=== PATIENT | male | born 1955 | race Caucasian/White ===

== ENCOUNTER 2022-01-03 13:17 | Outpatient (CLI) | payer MEDICARE, OTHER, SELFPAY ==
[2022-01-03 17:29] LABS: Albumin* 4.3 g/dL (3.3-5.0)
[2022-01-03 17:32] LABS: Alanine Aminotransferase* 19 U/L (4-50); Alkaline Phosphatase* 72 U/L (40-150); Aspartate Amino Transferase* 26 U/L (12-35); Bilirubin Direct* 0.2 mg/dL (0.0-0.5); Bilirubin Total* 1.2 mg/dL (0.1-1.5); Lipase* 128 U/L (23-300); Total Protein* 7.5 g/dL (6.0-8.3)
== END 2022-01-03 13:18 | disposition home or self-care (01) ==
PROVIDERS: PCP Family Medicine; Visit Provider Family Medicine
DX: R10.9 Unspecified abdominal pain (principal)
CPT/HCPCS: 80076; 83690

== ENCOUNTER 2022-03-28 10:48 | Outpatient (CLI) | payer MEDICARE, BC, SELFPAY ==
[2022-03-28 18:39] LABS: Albumin* 4.4 g/dL (3.3-5.0)
[2022-03-28 18:40] LABS: Chloride* 103 mmol/L (96-114); Potassium* 4.8 mmol/L (3.6-5.1); Sodium* 140 mmol/L (135-149)
[2022-03-28 18:42] LABS: Bilirubin Total* 1.2 mg/dL (0.1-1.5); Creatinine* 0.9 mg/dL (0.5-1.5); Estimated Glomerular Filt Rate 94 ml/min
[2022-03-28 18:43] LABS: Alanine Aminotransferase* 19 U/L (4-50); Alkaline Phosphatase* 64 U/L (40-150); Aspartate Amino Transferase* 26 U/L (12-35); Blood Urea Nitrogen* 11 mg/dL (7-30); Calcium* 9.7 mg/dL (8.4-10.6); Carbon Dioxide* 29 mmol/L (20-32); Glucose* 101 mg/dL (60-115); Lipase* 106 U/L (23-300); Total Protein* 7.9 g/dL (6.0-8.3)
== END 2022-03-28 10:49 | disposition home or self-care (01) ==
PROVIDERS: PCP Family Medicine; Visit Provider Family Medicine
DX: R10.9 Unspecified abdominal pain (principal); I10 Essential (primary) hypertension; K74.60 Unspecified cirrhosis of liver
CPT/HCPCS: 80053; 83690

== ENCOUNTER 2022-04-07 14:20 | Outpatient (CLI) | payer MEDICARE, BC, SELFPAY ==
[2022-04-07 17:21] LABS: Prothrombin Time 13.8 Seconds
== END 2022-04-07 14:21 | disposition home or self-care (01) ==
LOC: NFLDREF 14:22
PROVIDERS: PCP Family Medicine; Visit Provider Surgery
DX: K70.30 Alcoholic cirrhosis of liver without ascites (principal)
CPT/HCPCS: 85610

== ENCOUNTER 2022-04-15 08:01 | Outpatient (CLI) | payer MEDICARE, BC, SELFPAY ==
--- NOTE | 2022-04-15 09:00 | CRLHL7_ITS ---
For Patients: As a result of the Century Cures Act, medical imaging exams and procedure reports are released immediately into your electronic medical record. You may view this report before your referring provider. If you have questions, please contact your health care provider. Indication: GALLSTONES, HISTORY OF CIRRHOSIS Technique: Postcontrast CT abdomen and pelvis. 100 cc Isovue 370 intravenous contrast. Please note that all CT scans at this facility use dose modulation, iterative reconstruction, and/or weight-based dosing when appropriate to reduce radiation dose to as low as reasonably achievable. Comparison: CT 08/06/2012, ultrasound 08/01/2021 Findings: Lung bases are clear. No free intraperitoneal air noted. The liver is shrunken and has a macronodular contour with heterogeneous enhancement. The spleen is upper limits of normal in size measuring 12 cm. The adrenal glands are normal. No hydronephrosis. There is a simple cyst within the lower pole of the left kidney measuring 3.5 cm. Atherosclerotic changes within the aorta noted without aneurysm. The pancreatic parenchyma is normal. Calcified gallstones are present within the gallbladder lumen measuring up to 8 millimeters. No intrahepatic biliary duct dilation. The common bile duct appears normal. No hiatal hernia. The stomach is within normal limits. The bladder is normal. Prostate calcifications are present. No bowel obstruction or free fluid. No abscess. Recanalization of the periumbilical vein noted. Multilevel degenerative disc disease and facet degeneration. No fracture. 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 This is chronic. Impression: Severe hepatic cirrhosis with recanalization of the periumbilical vein and upper limits of normal in size of the spleen. Numerous varices are present within the left upper quadrant. Cholelithiasis. Please note that all CT scans at this facility use dose modulation, iterative reconstruction, and/or weight-based dosing when appropriate to reduce radiation dose to as low as reasonably achievable. Dictated by Enzo Foley MD @ 04/15/2022 12:44:52 PM (Electronically Signed)
== END 2022-04-15 08:02 | disposition home or self-care (01) ==
LOC: CT 08:02
PROVIDERS: PCP Family Medicine; Visit Provider Surgery
DX: K70.30 Alcoholic cirrhosis of liver without ascites (principal); K74.60 Unspecified cirrhosis of liver; K80.20 Calculus of gallbladder without cholecystitis without obstruction
CPT/HCPCS: 74177; Q9967

== ENCOUNTER 2023-05-18 06:30 | Outpatient (CLI) | payer MEDICARE, BC, SELFPAY ==
--- NOTE | 2023-05-18 08:19 | W.ANESCHARGE ---
Anesthesia Charges Start Date/Time Anesthesia Start Date: 05/18/23 Anesthesia Start Time: 07:23 Stop Date/Time Anesthesia Stop Date: 05/18/23 Anesthesia Stop Time: 08:10
--- NOTE | 2023-05-18 11:07 | W.ANESCHARGE ---
Anesthesia Charges Start Date/Time Anesthesia Start Date: 05/18/23 Anesthesia Start Time: 07:23 Stop Date/Time Anesthesia Stop Date: 05/18/23 Anesthesia Stop Time: 08:10
== END 2023-05-18 06:31 | disposition home or self-care (01) ==
LOC: OP CLINIC 06:31
PROVIDERS: PCP Family Medicine; Visit Provider Surgery
DX: Z12.11 Encounter for screening for malignant neoplasm of colon (principal); K63.5 Polyp of colon; K62.1 Rectal polyp; K57.30 Diverticulosis of large intestine without perforation or abscess without bleeding; Z86.010 Personal history of colon polyps
CPT/HCPCS: 00811; 45380; 45381; 45385; 88305; J2704

== ENCOUNTER 2023-07-13 11:34 | Outpatient (CLI) | payer MEDICARE, BC, SELFPAY ==
--- OUTSIDE RECORDS SUMMARY | 2023-07-13 11:37 | XMS_ITS | Referral Summary ---
Author Name Unknown Organization [facility] Address [address] [place] [address] Care Team Providers Care Psychiatric Np Name Role Phone Elsewhere, Pcp Primary Care Provider Unavailabl e Source Comments Patient records contain information from all sites at [facility]. For routine questions regarding patient records, call [phone] during business hours, M-F 8:00 AM - 5:00 PM Central Time. Record requests for emergency care only can be directed to [phone] at any time.[facility] Allergies Active Allergy Reactions Criticality Noted Date Comments Sulfa (Sulfonamide Antibiotics) Other (see comments) 08/05/2010 Medications Medication Sig Dispensed Refills Start Date End Date Status omeprazole (PriLOSEC) [address] capsule Take 20 mg by mouth every morning before breakfast. 08/05/2010 Active tamsulosin (FLOMAX) 0.4 mg 24 hr capsule Take 0.4 mg by mouth daily. Active metoprolol succinate (TOPROL-XL) 50 mg 24 hr tablet Take 50 mg by mouth daily. To start after out of metoprolol tartrate. Do not crush or chew. Active nortriptyline (PAMELOR) 10 mg capsule Take 1 capsule (10 mg total) by mouth at bedtime. 30 capsule 07/13/2022 Active metoprolol tartrate (LOPRESSOR) 50 mg tablet Take 1 tablet (50 mg total) by mouth daily. If you begin taking Metoprolol Succinate 50 mg daily, please stop this medication. 30 tablet 07/13/2022 Active Active Problems Problem Noted Date Diagnosed Date Gallstone Without Obstruction 07/13/2022 Abdominal Pain 07/12/2022 Degeneration Disc Cervical 09/08/201307/06 Hypertension 08/05/2010 07/06/2022 Social History Tobacco Use Types Packs/Day Years Used Date Smoking Tobacco: Former Cigarettes 2.5 20 Smokeless Tobacco: Current Snuff Tobacco Cessation:Ready to Q uit: Not Asked; Counseling Given: Not Answered Alcohol Use Standard Drinks/Week Comments Not Currently 0 (1 standard drink = 0.6 oz pur e alcohol) Quit drinking 10 years ago. Nutrition Answer Date Recorded Nutrition: EVOO Fat Source Unknown 07/06 Nutrition: Servings of Fruits/Vegetables per Day Not on file 07/06/2022 Dental Answer Date Recorded Dental: Regular Dentist Unknown 07/07/19 Sex and Gender Information Value Date Recorded Sex Assigned at Not on file Gender Identity Not on file Sexual Orientation Not on file Last Filed Vital Signs Vital Sign Reading Time Taken Comments Blood Pressure 135/91 07/13/2022 12:40 PM CDT Pulse 53 07/13/2022 12:40 PM CDT Temperature 36.9 ??C (98.4 ??F) 07/13/2022 12:40 PM C DT Respiratory Rate 16 07/13/2022 12:40 PM CDT Oxygen Saturation 95% 07/13/2022 12:40 PM CDT Inhaled Oxygen Concentration - - Weight 107 kg (236 lb 5.3 oz) 07/12/2022 4:01 PM CDT Height 180.3 cm (5' 11) 07/12/2022 4:01 PM CDT Body Mass Index 32.96 07/12/2022 4:01 PM CDT Plan of Treatment Not on file Procedures Procedure Name Priority Date/Time Associated Diagnosis Comments COMPREHENSIVE METABOLIC PANEL, S/P Routine 07/13/2022 4:[address] ABDOMEN PELVIS WITH IV CONTRAST RAD - Semiurgent (Fast; most ED patients; some inpatients) 07/12/2022 12:45 PM CDT from Last 3 Months or Most Recently Relevant to Health Maintenance Results * (ABNORMAL) Comprehensive Metabolic Panel (07/13/2022 4:17 AM CDT) Potassium, S 4.6 3.6 - 5.2 mmol/L 07/13/2022 5:37 AM CDT DTL Sodium, S 140 135 - 145 mmol/L 07/13/2022 5:37 AM CDT DTL Chloride, S 102 98 - 107 mmol/L 07/13/2022 5:37 AM CDT DTL Bicarbonate, S 26 22 - 29 mmol/L 07/13/2022 5:37 AM CDT DTL Anion Gap 12 7 - 15 07/13/2022 5:37 AM CDT DTL BUN (Blood Urea Nitrogen), S 12 8 - 24 mg/dL 07/13/2022 5:37 AM CDT DTL Creatinine 1.14 0.74 - 1.35 mg/dL 07/13/2022 5:37 AM CDT DTL Estimated GFR (eGFR) 70 >=60 mL/min/BS A 07/13/2022 5:37 AM CDT DTL Comment: Estimated GFR calculated using the 2020 CKD_EPI creatinine equation. Calcium, Total, S 9.6 8.8 - 10.2 mg/dL 07/13/2022 5:37 AM CDT DTL Glucose, S 89 70 - 140 mg/dL 07/13/2022 5:37 AM CDT DTL Protein, Total, S 6.9 6.3 - 7.9 g/dL 07/13/2022 5:37 AM CDT DTL Albumin, S 4.1 3.5 - 5.0 g/dL 07/13/2022 5:37 AM CDT DTL Aspartate Aminotransferase (AST), S 21 8 - 48 U/L 07/13/2022 5:37 AM CDT DTL Alkaline Phosphatase, S 49 40 - 129 U/L 07/13/2022 5:37 AM CDT DTL Alanine Aminotransferase (ALT), S 14 7 - 55 U/L 07/13/2022 5:37 AM CDT DTL Bilirubin, Total, S 1.4(H) <=1.2 mg/dL 07/13/2022 5:37 AM CDT DTL Blood (Blood, Venous) 07/13/2022 4:17 AM CDT 07/13/2022 5:19 AM CDT Trent Boyer M.D. LAB BLOOD ADD-ON [facility] [address] [place] [address], [place] DTL [facility] [address] [place] [address] * CT Abdomen Pelvis with IV Contrast (07/12/2022 12:45 PM CDT) Anatomical Region Laterality Modality Abdomen, Pelvis, Abdominal R ST LOS, Abdominal ARZ LOS, Abdominal FLA LOS N/A Computed Tomograp hy, Computed Tomography 07/12/2022 12:4 3 PM CDT Impressions 07/12/2022 12:59 PM CDT 1. No significant change since 04/15/2022. No acute findings in the abdomen or pelvis. 2. Cirrhotic liver morphology with compensated portal venous hypertension. 3. Curvilinear sclerotic foci in both femoral heads, could represent AVN. Narrative 07/12/2022 12:59 PM CDT EXAM: ??CT ABDOMEN PELVIS WITH IV CONTRAST COMPARISON: ??CT of the abdomen and pelvis 04/15/2022. FINDINGS: ??Similar cirrhotic liver morphology with recannulation of the umbilical vein and prominent perisplenic venous collaterals. No ascites. Similar gallstones without findings to suggest acute cholecystitis. Left renal cyst. Mild symmetric thickening of the bladder wall, likely secondary to underdistention. Enlarged prostate. Solid organs otherwise unremarkable. Normal caliber bowel. Negative appendix. Small fat-containing right inguinal hernia. Moderate peripheral arterial disease with hemodynamically significant stenosis in the bilateral external iliac arteries. Moderate-advanced degenerative changes of the spine. Similar curvilinear sclerotic foci in both femoral heads without subarticular collapse. Procedure Note Delta Beltran M.D. - 07/12/2022 EXAM: CT ABDOMEN PELVIS WITH IV CONTRAST COMPARISON: CT of the abdomen and pelvis 04/15/2022. FINDINGS: Similar cirrhotic liver morphology with recannulation of theumbilical vein and prominent perisplenic venous collaterals. No ascites. Similar gallstones withoutfindings to suggest acute cholecystitis. Left renal cyst. Mild symmetric thickening of the bladderwall, likely secondary to underdistention. Enlarged prostate. Solid organs otherwise unremarkable.Normal caliber bowel. Negative appendix. Small fat-containing right inguinal hernia. Moderateperipheral arterial disease with hemodynamically significant stenosis in the bilateral external iliacarteries. Moderate-advanced degenerative changes of the spine. Similar curvilinearsclerotic foci in both femoral heads without subarticular collapse. IMPRESSION: 1. No significant change since 04/15/2022. No acute findings in theabdomen or pelvis. 2. Cirrhotic liver morphology with compensated portal venoushypertension. 3. Curvilinear sclerotic foci in both femoral heads, could representAVN. Aniceto Travis M.D. IMG CT PROCEDURES from Last 3 Months or Most Recently Relevant to Health Maintenance Advance Directives For more information, please contact: [phone] * Full Code (Latest Code Status on File) Date Activated Date Inactivated Comments 07/12/2022 6:06 PM 07/13/2022 3:33 PM Question Answer Comments Full Code: Discussed Care Teams Psychiatric Np Relationship Specialty Start Date End Date Elsewhere, Pcp PCP - General Internal Medicine 07/06/22
--- OUTSIDE RECORDS SUMMARY | 2023-07-13 11:37 | XMS_ITS | Continuity of Care Document ---
Author Name Unknown Organization [facility] Address [address] [place] [address] Phone Care Team Providers Care Master Sonar Technician Name Role Phone Joe Harris Unavailable Unavailable Allergies, Adverse Reactions, Alerts Substance Reaction Status Criticality Sulfa (Sulfonamide Antibiotics) Active No Information Medications Medication Instructions Dosage Effective Dates (start - stop) Status Comments PRILOSEC (unknown strength) Not Available - Active Procedures Procedure Date Office/Outpatient Visit,[facility] [place] Advance Directives Directive Yes / No Effective Date File Name No Information Encounters Encounter Description Practice Location Reason(s) For Visit Diagnoses Date Provider Providers Copied on Encounter Office/Outpat ient Visit,[facility] , [address], [place], [place], [id number], [place] tel:[phone] [facility] Spondylosis without myelopathy or radiculopathy , cervical region Sammy Diaz. [facility], [address], [address], [place], [place], [id number] , [place]. tel:[phone] Referring Provider: Robbie Thomas [facility] [address] [place] [address], [address]. tel:[phone] Family History Family Member Type Diagnosis Age At Onset No Information Payers Payer name Insurance type Covered alliance party ID He fitzpatrick(s) [id number] Social History Type Description Quantity Date Captured Comments Alcohol Use Details Unknown Caffeine Use Details Unknown Tobacco Use Status Chews tobacco Smoking Status Unknown if ever smoked 16 Non-Smoking Tobacco Use Details Snuff: No Details Available Chewing: No Details Available Snuff: No Details Available Chewing: No Details Available Sex Male Vital Signs Date / Time: Height Weight BMI Pulse Rate Blood Pressure Temperature Respiratory Rate Body Surface Area Head Circumference Head Circ. Percentile Wt./Manuel. Percentile BMI percentile Pulse Ox Inhaled Ox 8:57 AM 70.00 in 103.873 kg (229.00 lbs) 32.8 6 kg/m eter (2) 52 /min 128/74 mm[Hg] Chief Complaint And Reason For Visit No Information Reason For Referral Reason For Referral No Information History Of Present Illness Encounter Date Complaint History Of Prese nt Illness No Information Functional Status Date Functional Assessmen t No Information Instructions Date Instruction Additional Infor mation No Information Assessments Type Assessment Date assessment Spondylosis without myelopathy or radiculopathy, cervical region Patient Care Teams Name Effective Dates (start - stop) Status Members No Information
--- OUTSIDE RECORDS SUMMARY | 2023-07-13 11:37 | XMS_ITS ---
Author Name Unknown Organization [facility] Address [address] [place] [address] Care Team Providers Care Die Sizer Name Role Phone Unavailable Unavailable Unavailable Surgery Details Not on file Complications Check Surgery Details section. Procedure Estimated Blood Loss Check Surgery Details section. Procedure Findings Check Surgery Details section. Procedure Specimens Taken Check Surgery Details section.
--- OUTSIDE RECORDS SUMMARY | 2023-07-13 11:37 | XMS_ITS | Clinical Summary ---
Author Name Unknown Organization [facility] Address [place], [place] [address] Care Team Providers Care Band Lining Bander Name Role Phone Veronica Blanchard MD Primary Care Provider [phone] Allergies Active Allergy Reactions Criticality Noted Date Comments Sulfa (Sulfonamide Antibiotics) *Unknown - Childhood Rxn 08/05/2010 Medications Medication Sig Dispensed Refills Start Date End Date Status omeprazole (PRILOSEC) 20 mg capsule Take 1 capsule by mouth once daily before a meal. 0 08/05/2010 Active metoprolol (LOPRESSOR) 50 mg tabletIndications:HTN (hypertension) Take 1 tablet by mouth 2 times daily. 0 08/05/2010 Active meloxicam 15 mg tablet Take 1 tablet by mouth once daily. 30 tablet 5 09/08/2013 Active Active Problems Problem Noted Date Diagnosed Date Mild OA (osteoarthritis) of knee 09/08/2013 DDD (degenerative disc disease), cervical 2013 HTN (hypertension) 08/05/2010 Resolved Problems Problem Noted Date Diagnosed Date Resolved Date HTN (hypertension) 08/05/2010 1 Encounters Date Type Department Care Team Description 05/18/2023 Lab Requisition [facility] [phone] Ene Michelle MD from Last 3 Months Family History Medical History Relation Name Comments Cancer-colon Father Heart Disease Paternal Grandfather [place] Relation Name Status Comments Father colon CA Paternal Grandfather [place] Social History Tobacco Use Types Packs/Day Years Used Date Smoking Tobacco: Former Smokeless Tobacco: Current Snuff Tobacco Cessation:Ready to Q uit: No; Counseling Given: Yes Alcohol Use Standard Drinks/Week Comments Yes 0 (1 standard drink = 0.6 oz pure alcohol) 4 beers after work more on weekends Sex and Gender Information Value Date Recorded Sex Assigned at Not on file Gender Identity Not on file Sexual Orientation Not on file Obstetrics History Last Filed Vital Signs Vital Sign Reading Time Taken Comments Blood Pressure 121/77 09/08/2013 8:15 AM CDT Pulse 49 09/08/2013 8:15 AM CDT Temperature 36.8 ??C (98.3 ??F) 09/08/2013 8:15 AM CD T Respiratory Rate - - Oxygen Saturation 98% 09/08/2013 8:15 AM CDT Inhaled Oxygen Concentration - - Weight 107.5 kg (237 lb) 09/08/2013 8:15 AM CDT Height 177.8 cm (5' 10) 09/08/2013 8:15 AM CDT Body Mass Index 34.01 09/08/2013 8:15 AM CDT Plan of Treatment Health Maintenance Due Date Last Done Comments Tdap 06/04/1966 Depression screening for age 12+ 1967 BMI (ht and wt on same day) for age 18+ 06/04/1973 Hepatitis C screening for age 18-79 06/04/1973 Tetanus booster 1975 Colonoscopy through age 75 06/04/2000 Lipids for age 45-75 06/04/2000 Zoster (shingles) series for age 50+ (1 of 2) 06/05/19 06 Pneumococcal series for age 65+ (1 of 1 - PCV) 021 COVID-19 vaccine series ( - 2022-24 season) 3 Influenza for age 65+ 11/01/2023 Procedures Procedure Name Priority Date/Time Associated Diagnosis Comments LAB TRACKING EVENT Routine 05/18/2023 7: 45 AM CDT PATH TISSUE EXAM Routine 05/18/2023 7:45 AM CDT from Last 3 Months Results * LAB TRACKING EVENT (05/18/2023 7:45 AM CDT) Other (Other) Client Collect / Unknown 05/18/2023 7:45 AM CDT 05/18/2023 9:02 PM CDT Ene Michelle MD LAB BILL ONLY [facility] [address] [place] [address], * PATH TISSUE EXAM (05/18/2023 7:45 AM CDT) Case Report Pathology Report ?Case: [id number] ? Authorizing Provider: ??Ene Michelle MD ??Collected: ? 05/18/2023 0745 ? Ordering Location: ? [facility] ?Received: ?05/19/2023 0957 ? Pathologist: ? Atul Jerez MD ? Specimens: ?? A) - Transverse Colon Biopsy ? B) - Rectal Biopsy ? 05/21/2023 3:16 PM CDT [facility] Final Diagnosis A) COLON, TRANSVERSE, POLYPECTOMY: 1. Normal colonic mucosa (clinically, 1 polyp) 2. Negative for serrated change, dysplasia, and malignancy B) RECTUM, POLYPECTOMY: 1. Hyperplastic polyp 05/21/2023 3:16 PM CDT [facility] Clinical Information Surveillance colonoscopy Colonoscopy findings: Multiple polyps, completely removed. Sigmoid colon diverticulosis 05/21/2023 3:16 PM CDT [facility] Gross Description A) Received in formalin is a 1 mm galloway-pink rubbery polypoid tissue. Entirely submitted in a single cassette. It is labeled with the patient's name and designated transverse polyp. B) Received in formalin are 3 galloway-pink soft to rubbery polypoid tissues ranging from 2 mm to 6 mm. It is labeled with the patient's name and designated rectum polyp. NIKITA Salazar 05/19/2023 10:00 AM 05/21/2023 3:16 PM CDT [facility] Microscopic Description The final diagnosis is based on microscopic examination of appropriate sections of all specimens. 05/21/2023 3:16 PM CDT [facility] Additional Information Interpreted at [facility] - [address] [facility] [address], [place] [address] 05/21/2023 3:16 PM CDT [facility] Other (Transverse Colon Biopsy) 05/18/2023 7:45 AM CDT 05/19/2023 9:57 AM CDT Specimen (specimen) (Rectal Biopsy) 05/18/2023 7:45 AM CDT 05/19/2023 9:57 AM CDT Ene Michelle MD PATHOLOGY/[facility] [address] [place] [address], from Last 3 Months Care Teams Band Lining Bander Relationship Specialty Start Date End Date Veronica Blanchard MD PCP - General Internal Medicine 07/18/13
--- OUTSIDE RECORDS SUMMARY | 2023-07-13 11:37 | XMS_ITS | Clinical Summary ---
Author Name Unknown Organization [facility] Address [address] [place] [address] Care Team Providers Care Mold Design Engineer Name Role Phone Elsewhere, Pcp Primary Care Provider Unavailabl e Source Comments Patient records contain information from all sites at [facility]. For routine questions regarding patient records, call [phone] during business hours, M-F 8:00 AM - 5:00 PM Central Time. Record requests for emergency care only can be directed to [phone] at any time.[facility] Allergies Active Allergy Reactions Criticality Noted [...] 07/12/2022 4:01 PM CDT Plan of Treatment Health Maintenance Due Date Last Done Comments CT Colonography 1955 Cologuard 1955 Colonoscopy 1955 Colorectal Cancer Screening 1955 FIT 1955 Hepatitis C Screening 1955 Office Visit for Blood Press ure Check / Re-check 1955 Pneumococcal vaccine (65+ ye ars) (2 of 2 - PCV) 06/22/2021 06/22/2020 COVID-19 Vaccine (4 - 2022-2 4 season) 2022 12/28/2020, 06/09/2020, 05/19/2020 Influenza Vaccine (#1) 2022 2, 12/21/2020, 11/10/2019, Additional history exists Depression Screening (Annual PHQ-2) 03/02/2023 Fall Risk Screen (Annual) 03/02/2023 DTaP,Tdap,and Td Vaccines (2 - Td or Tdap) 09/28/2024 09/28/2014 Fasting Glucose for Diabetes Screening 07/13/2025 07/13/2022, 07/12/2022, 07/06/2022 Abdominal Aortic Aneurysm (A AA) Screen Completed 07/12/2022 Zoster Vaccines Completed 08/04/2022, 05/07/2022 Procedures Procedure Name Priority Date/Time Associated Diagnosis [...] CDT Trent Boyer M.D. [place] [address], [facility] [place] [address] * CT Abdomen Pelvis with IV Contrast [...] Advance Directives For more information, please contact: [phone] * Full Code (Latest Code Status on File) Date Activated Date Inactivated Comments 07/12/2022 6:06 PM 07/13/2022 3:33 PM Question Answer Comments Full Code: Discussed Care Teams Mold Design Engineer Relationship Specialty Start Date End Date Elsewhere, Pcp PCP - General Internal Medicine 07/06/22
== END 2023-07-13 11:35 | disposition home or self-care (01) ==
PROVIDERS: PCP Family Medicine; Visit Provider Family Medicine
DX: I10 Essential (primary) hypertension (principal); N40.0 Benign prostatic hyperplasia without lower urinary tract symptoms; Z12.5 Encounter for screening for malignant neoplasm of prostate
CPT/HCPCS: 80048; G0103

== ENCOUNTER 2023-08-04 13:09 | Outpatient (CLI) | payer MEDICARE, BC, SELFPAY ==
--- OUTSIDE RECORDS SUMMARY | 2023-08-04 13:14 | XMS_ITS ---
Author Organization [facility] Address [address] [place] [address] Care Team Providers Care Carpenter Repairer Name Role Phone Unavailable Unavailable Unavailable Surgery Details Not on file Complications Check Surgery Details section. Procedure Estimated Blood Loss Check Surgery Details section. Procedure Findings Check Surgery Details section. Procedure Specimens Taken Check Surgery Details section.
--- OUTSIDE RECORDS SUMMARY | 2023-08-04 13:14 | XMS_ITS | Clinical Summary ---
Author Organization [employer] [facility] Address [place], [place] [address] Care Team Providers Care Commissioner Of Officials Name Role Phone Veronica Blanchard MD Primary Care Provider [phone] Allergies Active Allergy Reactions Criticality Noted Date [...] Department Care Team Description 05/18/2023 Lab Requisition [facility] [phone] Ene Michelle MD from Last 3 Months Family History Medical History Relation Name Comments Cancer-colon Father Heart Disease Paternal Grandfather [place] Relation Name Status Comments Father colon CA Paternal Grandfather [place] Social History Tobacco Use Types Packs/Day Years [...] 1 - PCV) 021 COVID-19 vaccine series (1 - 2022-24 season) 3 Influenza for age [...] CDT Ene Michelle MD LAB BILL ONLY [facility] [address] [place] [address], * PATH TISSUE EXAM (05/18/2023 7:45 AM CDT) Case Report Pathology Report ?Case: [id number] ? Authorizing Provider: ??Ene Michelle MD ??Collected: ? 05/18/2023 0745 ? Ordering Location: ? [facility] ?Received: ?05/19/2023 0957 ? Pathologist: ? Atul Jerez MD ? Specimens: ?? A) - Transverse Colon Biopsy ? B) - Rectal Biopsy ? 05/21/2023 3:16 PM CDT [facility] Final Diagnosis A) COLON, TRANSVERSE, POLYPECTOMY: 1. Normal colonic mucosa (clinically, 1 polyp) 2. Negative for serrated change, dysplasia, and malignancy B) RECTUM, POLYPECTOMY: 1. Hyperplastic polyp 05/21/2023 3:16 PM CDT [facility] Clinical Information Surveillance colonoscopy Colonoscopy findings: Multiple polyps, completely removed. Sigmoid colon diverticulosis 05/21/2023 3:16 PM CDT [facility] Gross Description A) Received [...] 05/19/2023 10:00 AM 05/21/2023 3:16 PM CDT [facility] Microscopic Description The final diagnosis is based on microscopic examination of appropriate sections of all specimens. 05/21/2023 3:16 PM CDT [facility] Additional Information Interpreted at [facility] - [address] [place] [address]. [address] [address] 05/21/2023 3:16 PM CDT [facility] Other (Transverse Colon Biopsy) 05/18/2023 7:45 AM CDT 05/19/2023 9:57 AM CDT Specimen (specimen) (Rectal Biopsy) 05/18/2023 7:45 AM CDT 05/19/2023 9:57 AM CDT Ene Michelle MD PATHOLOGY/[facility] [address] [place] [address], from Last 3 Months Care Teams Commissioner Of Officials Relationship Specialty Start Date End Date Veronica Blanchard MD PCP - General Internal Medicine 07/18/13
--- OUTSIDE RECORDS SUMMARY | 2023-08-04 13:14 | XMS_ITS | Referral Summary ---
Author Organization [facility] Address [address] [place] [address] Care Team Providers Care Signal Apprentice Name Role Phone Elsewhere, Pcp Primary Care Provider Unavailabl e Source Comments Patient records contain information from all sites at [facility]. For routine questions regarding patient records, call [phone] during business hours, M-F 8:00 AM - 5:00 PM Central Time. Record requests for emergency care only can be directed to [phone] at any time.[facility] Allergies Active Allergy Reactions Criticality Noted [...] CDT Trent Boyer M.D. LAB BLOOD ADD-ON [facility] [address] [place] [address], [place] DTL [facility] [address] [place] [address] * CT Abdomen Pelvis with IV Contrast [...] Advance Directives For more information, please contact: [phone] * Full Code (Latest Code Status on File) Date Activated Date Inactivated Comments 07/12/2022 6:06 PM 07/13/2022 3:33 PM Question Answer Comments Full Code: Discussed Care Teams Signal Apprentice Relationship Specialty Start Date End Date Elsewhere, Pcp PCP - General Internal Medicine 07/06/22
--- OUTSIDE RECORDS SUMMARY | 2023-08-04 13:14 | XMS_ITS | Clinical Summary ---
Author Organization [facility] Address [address] [place] [address] Care Team Providers Care Landscape Drafter Name Role Phone Elsewhere, Pcp Primary Care Provider Unavailabl e Source Comments Patient records contain information from all sites at [facility]. For routine questions regarding patient records, call [phone] during business hours, M-F 8:00 AM - 5:00 PM Central Time. Record requests for emergency care only can be directed to [phone] at any time.[facility] Allergies Active Allergy Reactions Criticality Noted [...] CDT Trent Boyer M.D. [place] [address], [facility] [place] [address] * CT Abdomen Pelvis with IV Contrast [...] Advance Directives For more information, please contact: [phone] * Full Code (Latest Code Status on File) Date Activated Date Inactivated Comments 07/12/2022 6:06 PM 07/13/2022 3:33 PM Question Answer Comments Full Code: Discussed Care Teams Landscape Drafter Relationship Specialty Start Date End Date Elsewhere, Pcp PCP - General Internal Medicine 07/06/22
--- OUTSIDE RECORDS SUMMARY | 2023-08-04 13:14 | XMS_ITS | Continuity of Care Document ---
Author Organization [facility] Address [address] [place] [address] Phone Care Team Providers Care Market Development Executive Name Role Phone Joe Harris Unavailable Unavailable Allergies, Adverse Reactions, Alerts Substance Reaction Status Criticality Sulfa (Sulfonamide Antibiotics) Active No Information Medications Medication Instructions Dosage Effective Dates (start - stop) Status Comments PRILOSEC (unknown strength) Not Available - Active Procedures Procedure Date Office/Outpatient Visit,[facility] [place] Advance Directives Directive Yes / No Effective Date File Name No Information Encounters Encounter Description Practice Location Reason(s) For Visit Diagnoses Date Provider Providers Copied on Encounter Office/Outpat ient Visit,[facility], [address], [place], [place], [id number], [place] tel:[phone] [facility] [place] Spondylosis without myelopathy or radiculopathy , cervical region Sammy Diaz. [facility], [address], [address], [place], [place], [id number] , [place]. tel:[phone] Referring Provider: Robbie Thomas [facility] [address] [place] [address], [address]. tel:[phone] Family History Family Member Type Diagnosis Age At Onset No Information Payers Payer name Insurance type Covered green party ID He fitzpatrick(s) [employer] [id number] Social History Type Description Quantity Date Captured [...]
== END 2023-08-04 13:10 | disposition home or self-care (01) ==
LOC: LKVREF 13:11
PROVIDERS: PCP Family Medicine; Visit Provider Family Medicine
DX: K70.30 Alcoholic cirrhosis of liver without ascites (principal); R10.11 Right upper quadrant pain
CPT/HCPCS: 80053

== ENCOUNTER 2023-09-07 07:12 | Outpatient (CLI) | payer MEDICARE, BC, SELFPAY ==
--- OUTSIDE RECORDS SUMMARY | 2023-09-07 07:14 | XMS_ITS | Clinical Summary ---
Author Organization [employer] [facility] Address [place], [place] [address] Care Team Providers Care Tire Fabric Impregnating Range Tender Name Role Phone Veronica Blanchard MD Primary Care Provider [phone]- [phone] Allergies Active Allergy Reactions Criticality Noted Date [...] Date Resolved Date HTN (hypertension) 08/05/2010 1 Family History Medical History Relation Name Comments Cancer-colon Father Heart Disease Paternal Grandfather [place] Relation Name Status Comments Father colon CA Paternal Grandfather [place] Social History Tobacco Use Types Packs/Day Years [...] PCV) 021 COVID-19 vaccine series ( - 2022- season) 3 Influenza for age 65+ 11/01/2023 Care Teams Tire Fabric Impregnating Range Tender Relationship Specialty Start Date End Date Veronica Blanchard MD PCP - General Internal Medicine 07/18/13
--- OUTSIDE RECORDS SUMMARY | 2023-09-07 07:14 | XMS_ITS | Continuity of Care Document ---
Author Organization [facility] Address [address] [place] [address] Phone Care Team Providers Care Business Insurance Agent Name Role Phone Joe Harris Unavailable Unavailable Allergies, Adverse Reactions, Alerts Substance Reaction Status Criticality Sulfa (Sulfonamide Antibiotics) Active No Information Medications Medication Instructions Dosage Effective Dates (start - stop) Status Comments PRILOSEC (unknown strength) Not Available - Active Procedures Procedure Date Office/Outpatient Visit,[facility] [place] [place] Advance Directives Directive Yes / No Effective Date File Name No Information Encounters Encounter Description Practice Location Reason(s) For Visit Diagnoses Date Provider Providers Copied on Encounter Office/Outpat ient Visit,[facility], [address], [place], [place], [id number], [place] tel:[phone] [facility] [place] Spondylosis without myelopathy or radiculopathy , cervical region Sammy Diaz. [facility], [address], [address], [place], [place], [id number] , [place]. tel:[phone] Referring Provider: Robbie Thomas [facility] [address] [place] [address], [id number]. tel:[phone] Family History Family Member Type Diagnosis Age At Onset No Information Payers Payer name Insurance type Covered constitution party ID He fitzpatrick(s) [employer] [id number] Social History Type Description Quantity Date Captured [...]
--- OUTSIDE RECORDS SUMMARY | 2023-09-07 07:14 | XMS_ITS | Referral Summary ---
Author Organization [facility] Address [address] [place] [address] Care Team Providers Care Supply Analyst Name Role Phone Elsewhere, Pcp Primary Care Provider Unavailabl e Source Comments Patient records contain information from all sites at [facility]. For routine questions regarding patient records, call [phone] during business hours, M-F 8:00 AM - 5:00 PM Central Time. Record requests for emergency care only can be directed to [phone] at any time.[facility] Allergies Active Allergy Reactions Criticality Noted Date [...] Trent Boyer M.D. LAB BLOOD ADD-ON [facility] [address] [place] [address], [place] D[place] [facility] [address] [place] [address] * CT Abdomen Pelvis with IV Contrast [...] Advance Directives For more information, please contact: [phone] * Full Code (Latest Code Status on File) Date Activated Date Inactivated Comments 07/12/2022 6:06 PM 07/13/2022 3:33 PM Question Answer Comments Full Code: Discussed Care Teams Supply Analyst Relationship Specialty Start Date End Date Elsewhere, Pcp PCP - General Internal Medicine 07/06/22
--- OUTSIDE RECORDS SUMMARY | 2023-09-07 07:14 | XMS_ITS | Clinical Summary ---
Author Organization [facility] Address [address] [place] [address] Care Team Providers Care Vascular Surgery Physician Name Role Phone Elsewhere, Pcp Primary Care Provider Unavailabl e Source Comments Patient records contain information from all sites at [facility]. For routine questions regarding patient records, call [phone] during business hours, M-F 8:00 AM - 5:00 PM Central Time. Record requests for emergency care only can be directed to [phone] at any time[address] Allergies Active Allergy Reactions Criticality Noted [...] 2022-2 4 season) 2022 12/28/2020, 06/09/2020, 05/19/2020 Depression Screening (Annual PHQ-2) 03/02/2023 Fall Risk Screen (Annual) 03/02/2023 Influenza Vaccine (#1) 2023 2, 12/21/2020, 11/10/2019, Additional history exists DTaP,Tdap,and Td Vaccines (2 - Td or [...] CDT Trent Boyer M.D. [place] [address], [facility] [place] [address] * CT Abdomen Pelvis with IV Contrast [...] Advance Directives For more information, please contact: [phone] * Full Code (Latest Code Status on File) Date Activated Date Inactivated Comments 07/12/2022 6:06 PM 07/13/2022 3:33 PM Question Answer Comments Full Code: Discussed Care Teams Vascular Surgery Physician Relationship Specialty Start Date End Date Elsewhere, Pcp PCP - General Internal Medicine 07/06/22
--- OUTSIDE RECORDS SUMMARY | 2023-09-07 07:14 | XMS_ITS ---
Author Organization [facility] Address [address] [place] [address] Care Team Providers Care Bridge Contractor Name Role Phone Unavailable Unavailable Unavailable Surgery Details Not on file Complications Check Surgery Details section. Procedure Estimated Blood Loss Check Surgery Details section. Procedure Findings Check Surgery Details section. Procedure Specimens Taken Check Surgery Details section.
[2023-09-07 07:46] LABS: Creatinine* 0.9 mg/dL (0.5-1.5); Estimated Glomerular Filt Rate 93 ml/min
--- NOTE | 2023-09-07 08:00 | CRLHL7_ITS ---
For Patients: As a result of the Century Cures Act, medical imaging exams and procedure reports are released immediately into your electronic medical record. You may view this report before your referring provider. If you have questions, please contact your health care provider. INDICATION: Right upper quadrant pain. History of alcoholic cirrhosis. Pancreatitis. TECHNIQUE: CT abdomen and pelvis acquired with 118 cc Isovue 370 IV contrast. COMPARISON: CT scan of the abdomen and pelvis 04/15/2022. FINDINGS: Lower chest: Unremarkable. Liver: Diminutive liver with diffuse nodular surface contour consistent with hepatic cirrhosis. No hepatic mass or intrahepatic duct dilatation. Gallbladder and bile ducts: 2 calcified stones within the gallbladder. No cholecystitis. Pancreas: Unremarkable. No mass, duct dilatation or inflammation. Spleen: Unremarkable. Normal in size. No masses. Adrenal glands: Unremarkable. No nodules. Kidneys, ureters and urinary bladder: Left renal cysts. Normal right kidney. No renal stone or hydronephrosis. Unremarkable urinary bladder. GI tract: Unremarkable. Normal in caliber. No sign of mass or inflammation. No appendicitis. Vasculature: Mild atherosclerosis of the abdominal aorta. No aneurysm.Mesenteric arteries are patent.Patent portal vein. Lymph nodes: No lymphadenopathy. Peritoneum: Unremarkable. No sign of mass or infiltration. No free air or significant free fluid. Abdominal Wall: No abdominal wall mass or hernia. Pelvis: Unremarkable. Bones: Osteonecrosis of the right and left femoral heads without subchondral bone step-off. Mild degenerative spondylosis of the lumbar spine. No fracture or suspicious bone lesion. IMPRESSION: 1. No acute abnormality. 2. Hepatic cirrhosis. 3. Cholelithiasis. Please note that all CT scans at this facility use dose modulation, iterative reconstruction, and/or weight-based dosing when appropriate to reduce radiation dose to as low as reasonably achievable. Dictated by Chidi Candelario MD @ 09/07/2023 2:14:32 PM (Electronically Signed)
== END 2023-09-07 07:13 | disposition home or self-care (01) ==
LOC: CT 07:13
PROVIDERS: PCP Family Medicine; Visit Provider Family Medicine
DX: R10.11 Right upper quadrant pain (principal); K74.60 Unspecified cirrhosis of liver; K80.20 Calculus of gallbladder without cholecystitis without obstruction
CPT/HCPCS: 36415; 74177; 82565; Q9967

== ENCOUNTER 2023-09-29 08:47 | Outpatient (CLI) | payer MEDICARE, BC, SELFPAY ==
--- OUTSIDE RECORDS SUMMARY | 2023-09-29 08:50 | XMS_ITS ---
Author Organization [facility] Address [address] [place] [address] Care Team Providers Care Welding Machine Operator Name Role Phone Unavailable Unavailable Unavailable Surgery Details Not on file Complications Check Surgery Details section. Procedure Estimated Blood Loss Check Surgery Details section. Procedure Findings Check Surgery Details section. Procedure Specimens Taken Check Surgery Details section.
--- OUTSIDE RECORDS SUMMARY | 2023-09-29 08:50 | XMS_ITS | Clinical Summary ---
Author Organization [facility] Address [address] [place] [address] Care Team Providers Care Rope Cleaner Name Role Phone Elsewhere, Pcp Primary Care Provider Unavailabl e Source Comments Patient records contain information from all sites at [facility]. For routine questions regarding patient records, call [phone] during business hours, M-F 8:00 AM - 5:00 PM Central Time. Record requests for emergency care only can be directed to [phone] at any time.[facility] Allergies Active Allergy Reactions Criticality [...] CDT Trent Boyer M.D. [place] [address], [facility] [place] [address] * CT Abdomen Pelvis with IV Contrast [...] Advance Directives For more information, please contact: [phone] * Full Code (Latest Code Status on File) Date Activated Date Inactivated Comments 07/12/2022 6:06 PM 07/13/2022 3:33 PM Question Answer Comments Full Code: Discussed Care Teams Rope Cleaner Relationship Specialty Start Date End Date Elsewhere, Pcp PCP - General Internal Medicine 07/06/22
--- OUTSIDE RECORDS SUMMARY | 2023-09-29 08:50 | XMS_ITS | Continuity of Care Document ---
Author Organization [facility] Address [address] [place] [address] Phone Care Team Providers Care Activities Officer Name Role Phone Joe Harris Unavailable Unavailable Allergies, Adverse Reactions, Alerts Substance Reaction Status Criticality Sulfa (Sulfonamide Antibiotics) Active No Information Medications Medication Instructions Dosage Effective Dates (start - stop) Status Comments PRILOSEC (unknown strength) Not Available - Active Procedures Procedure Date Office/Outpatient Visit,[facility] [place] Advance Directives Directive Yes / No Effective Date File Name No Information Encounters Encounter Description Practice Location Reason(s) For Visit Diagnoses Date Provider Providers Copied on Encounter Office/Outpat ient Visit,[facility], [address], [place], [place], [id number], [place] tel:[phone] [facility] [place] Spondylosis without myelopathy or radiculopathy , cervical region Sammy Diaz. [facility], [address], [address], [place], [place], [id number] , [place]. tel:[phone] Referring Provider: Robbie Thomas [facility] [address] [place] [address], [address]. tel:[phone] Family History Family Member Type Diagnosis Age At Onset No Information Payers Payer name Insurance type Covered democrat ID He fitzpatrick(s) [employer] [id number] Social History Type Description Quantity Date Captured [...]
--- OUTSIDE RECORDS SUMMARY | 2023-09-29 08:50 | XMS_ITS | Referral Summary ---
Author Organization [facility] Address [address] [place] [address] Care Team Providers Care Studio Associate Name Role Phone Elsewhere, Pcp Primary Care Provider Unavailabl e Source Comments Patient records contain information from all sites at [facility]. For routine questions regarding patient records, call [phone] during business hours, M-F 8:00 AM - 5:00 PM Central Time. Record requests for emergency care only can be directed to [phone] at any time.[facility] Allergies Active Allergy Reactions Criticality Noted [...] CDT Trent Boyer M.D. LAB BLOOD ADD-ON [facility] [address] [place] [address], [place] D[place] [facility] [address] [place] [address] * CT Abdomen Pelvis with IV Contrast [...] Advance Directives For more information, please contact: [phone] * Full Code (Latest Code Status on File) Date Activated Date Inactivated Comments 07/12/2022 6:06 PM 07/13/2022 3:33 PM Question Answer Comments Full Code: Discussed Care Teams Studio Associate Relationship Specialty Start Date End Date Elsewhere, Pcp PCP - General Internal Medicine 07/06/22
--- OUTSIDE RECORDS SUMMARY | 2023-09-29 08:50 | XMS_ITS | Clinical Summary ---
Author Organization [employer] [facility] Address [place], [place] [address] Care Team Providers Care Asphalt Blender Name Role Phone Veronica Blanchard MD Primary Care Provider [phone] Allergies Active Allergy Reactions Criticality Noted Date [...] Comments Cancer-colon Father Heart Disease Paternal Grandfather [place] Relation Name Status Comments Father colon CA Paternal Grandfather [place] Social History Tobacco Use Types Packs/Day Years [...] Influenza for age 65+ 11/01/2023 Care Teams Asphalt Blender Relationship Specialty Start Date End Date Veronica Blanchard MD PCP - General Internal Medicine 07/18/13
--- NOTE | 2023-09-29 09:15 | CRLHL7_ITS ---
For Patients: As a result of the Century Cures Act, medical imaging exams and procedure reports are released immediately into your electronic medical record. You may view this report before your referring provider. If you have questions, please contact your health care provider. Indication: Positional pain. Unspecified abdominal pain. Technique: Multiplanar, multisequence MRI of the thoracic spine, obtained without contrast. Comparison: Thoracic spine x-ray 08/31/2023 Findings: The normal thoracic kyphosis is preserved. No significant spondylolisthesis. Mild chronic anterior wedge configuration of T11-L1. No acute osseous abnormality. Scattered degenerative Schmorl`s nodes. Unremarkable bone marrow signal. Minor degenerative disc changes. No suspicious disc bulges, protrusions, or extrusions. The spinal canal and neural foramina appear grossly patent. The spinal cord is normal in course, caliber, and intrinsic signal. No suspicious findings identified in the paraspinal soft tissues. Impression: 1. Unremarkable spinal alignment. No acute osseous abnormality. 2. Minor spondylosis. No neural foraminal or spinal canal stenosis. Dictated by Sugar De Luna MD @ 09/30/2023 12:53:01 PM (Electronically Signed)
== END 2023-09-29 08:48 | disposition home or self-care (01) ==
LOC: MRI 08:48
PROVIDERS: PCP Family Medicine; Visit Provider Family Medicine
DX: R10.11 Right upper quadrant pain (principal); M47.895 Other spondylosis, thoracolumbar region
CPT/HCPCS: 72146

== ENCOUNTER 2024-02-08 09:02 | Outpatient (CLI) | payer MEDICARE, BC, SELFPAY | END 2024-02-08 09:03 | disposition home or self-care (01) | LOC: NFLDREF 02-11 05:20 | PROVIDERS: PCP Family Medicine; Referring Provider Family Medicine; Visit Provider Family Medicine | DX: K70.30 Alcoholic cirrhosis of liver without ascites (principal); F10.20 Alcohol dependence, uncomplicated | CPT/HCPCS: 85730 ==

== ENCOUNTER 2024-07-13 10:18 | Outpatient (CLI) | payer MEDICARE, BC, SELFPAY | END 2024-07-13 10:19 | disposition home or self-care (01) | PROVIDERS: PCP Family Medicine; Visit Provider Family Medicine | DX: I10 Essential (primary) hypertension (principal); K70.30 Alcoholic cirrhosis of liver without ascites; Z12.5 Encounter for screening for malignant neoplasm of prostate; Z13.21 Encounter for screening for nutritional disorder | CPT/HCPCS: 80053; 82607; 84443; G0103 ==